=== PATIENT | female | born 1955 | race Caucasian/White ===

== ENCOUNTER 2020-02-14 18:33 | Emergency (ER) | payer SELFPAY ==
--- NOTE | 2020-02-14 18:54 | ER Document Report ---
ED Medical Screen (RME) - General Chief Complaint: Abdominal Pain Stated Complaint: ABDOMINAL PAIN Time Seen by Provider: 02/14/20 18:46 Primary Care Provider: NOHEMY GIORDANO JR, MD [ACTIVE STAFF] - Follow up as needed Mode of Arrival: Ambulatory Information source: Patient Notes: 64-year-old female with history of high blood pressure high cholesterol presents with a emergency department with complaints of right upper quadrant epigastric abdominal pain. Reports that she has been having this pain, spasming, for the past 2 months with some nausea and vomiting. A couple days ago she was in [place] and went to urgent care. She was evaluated with labs and also treated for an abscess under her right arm. They did not do a gallbladder ultrasound but told her they suspected it was her gallbladder. She reports this morning when she was in the shower she had a spasm on the right upper quad that radiated across her epigastric to the left upper quad. She also reported she had some jaw pain for approximately 1 minute. She denies chest pain shortness of breath. I have greeted and performed a rapid initial assessment of this patient. A comprehensive ED assessment and evaluation of the patient, analysis of test results and completion of the medical decision making process will be conducted by additional ED providers. - Related Data Allergies/Adverse Reactions: No Known Allergies Allergy (Unverified 08/21/11 09:48) Past Medical History - Past Medical History Cardiac Medical History: Reports: Hx Hypertension Past Surgical History: Reports: Hx Tubal Ligation - Immunizations Hx Diphtheria, Pertussis, Tetanus Vaccination: Yes Physical Exam - Vital signs Vitals: Temp 98.6 F 02/14/20 18:33 Course - Vital Signs Vital signs: Temp Pulse Resp BP Pulse Ox 98.6 F 69 15 150/78 H 98 02/14/20 18:42 02/14/20 18:42 02/14/20 18:42 02/14/20 18:42 02/14/20 18:42 - Laboratory Result Diagrams: 02/14/20 19:05 02/14/20 19:05 Laboratory results interpreted by me: 02/14/20 02/14/20 02/14/20 19:05 19:05 20:00 RDW 14.6 H Sodium 132.5 L Est GFR (MDRD) Non-Af 54 L Urine Blood SMALL H Doctor's Discharge - Discharge Referrals: NOHEMY GIORDANO JR, MD [ACTIVE STAFF] - Follow up as needed
[2020-02-14 19:22] LABS: ABSOLUTE EOSINOPHILS # (AUTO) 0.1 10^3/uL (0.0-0.6); ABSOLUTE MONOCYTES (AUTO) 0.6 10^3/uL (0.1-1.4); TOTAL CELLS COUNTED % (AUTO) 100 %
[2020-02-14 19:38] LABS: ALBUMIN 4.7 g/dL (3.5-5.0); ALKALINE PHOSPHATASE 120 U/L (38-126); ANION GAP 10 (5-19); ASPARTATE AMINO TRANSFERASE 26 U/L (14-36); BILIRUBIN,TOTAL 0.5 mg/dL (0.2-1.3); BLOOD UREA NITROGEN 19 mg/dL (7-20); CALCIUM 9.8 mg/dL (8.4-10.2); CARBON DIOXIDE 22 mmol/L (22-30); CHLORIDE 101 mmol/L (98-107); GLUCOSE 107 mg/dL (75-110); POTASSIUM 4.2 mmol/L (3.6-5.0); TOTAL PROTEIN 7.5 g/dL (6.3-8.2)
[2020-02-14 19:43] LABS: ABSOLUTE LYMPHOCYTES (AUTO) 3.4 10^3/uL (0.5-4.7); ABSOLUTE NEUT (AUTO) 4.2 10^3/uL (1.7-8.2); BASOPHILS % (AUTO) 0.4 % (0-2); HEMATOCRIT 38.3 % (36.0-47.0); HEMOGLOBIN 13.8 g/dL (12.0-15.5); LYMPHOCYTES % (AUTO) 41.4 % (13-45); MEAN CORPUSCULAR HEMOGLOBIN 30.5 pg (27.0-33.4); MEAN CORPUSCULAR VOLUME 85 fl (80-97); MONOCYTES % (AUTO) 6.8 % (3-13); PLATELET COUNT 343 10^3/uL (150-450); RED BLOOD COUNT 4.52 10^6/uL (3.72-5.28); RED CELL DISTRIBUTION WIDTH 14.6 % (11.5-14.0); SEGMENTED NEUTROPHILS % (AUTO) 50.4 % (42-78); WHITE BLOOD COUNT 8.3 10^3/uL (4.0-10.5)
--- NOTE | 2020-02-14 19:43 | RADIOLOGY REPORT (SQ) ---
EXAM DESCRIPTION: U/S ABDOMEN LIMITED W/O DOP IMAGES COMPLETED DATE/TIME: 02/14/2020 7:34 pm REASON FOR STUDY: RUQ, epigastric pain COMPARISON: None. TECHNIQUE: Dynamic and static grayscale images acquired of the abdomen and recorded on PACS. Additio nal selected color Doppler and spectral images recorded. LIMITATIONS: None. FINDINGS: PANCREAS: No masses. Visualized pancreatic duct normal caliber. LIVER: No masses. Echotexture normal. LIVER VASCULATURE: Normal directional flow of the main portal vein and hepatic veins. GALLBLADDER: No stones. Normal wall thickness. No pericholecystic fluid. ULTRASOUND-DETECTED BLANCO'S SIGN: Negative. INTRAHEPATIC DUCTS AND COMMON DUCT: CBD and intrahepatic ducts normal caliber. No filling defects. INFERIOR VENA CAVA: Normal flow. AORTA: No aneurysm. RIGHT KIDNEY: Normal size. Normal echogenicity. No solid or suspicious masses. No hydronephrosis. No calcifications. PERITONEAL AND RIGHT PLEURAL SPACE: No ascites or effusions. OTHER: No other significant findings. IMPRESSION: NORMAL RIGHT UPPER QUADRANT ULTRASOUND. TECHNICAL DOCUMENTATION: JOB ID: [id number] [employer]- All Rights Reserved Reading location - IP/workstation name: [email or web address]
[2020-02-14 20:16] LABS: APPEARANCE,URINE SLIGHTLY-CLOUDY; BILIRUBIN,URINE NEGATIVE (NEGATIVE); COLOR,URINE STRAW; GLUCOSE, URINE NEGATIVE (NEGATIVE); KETONES,URINE NEGATIVE (NEGATIVE); LEUKOCYTE ESTERASE,URINE NEGATIVE (NEGATIVE); NITRITE,URINE NEGATIVE (NEGATIVE); PROTEIN,URINE NEGATIVE (NEGATIVE); URINE SPECIFIC GRAVITY 1.006; UROBILINOGEN,URINE NEGATIVE mg/dL (<2.0)
[2020-02-14] MEDS ORDERED: DICYCLOMINE HCL 20 MG TABLET PO ONE (20:29)
[2020-02-14] MEDS ORDERED: SUCRALFATE 1 GM TABLET PO ONE (20:43)
[2020-02-14] MEDS ORDERED: FAMOTIDINE 20 MG TABLET PO ONE (20:43)
--- NOTE | 2020-02-14 20:45 | ER Document Report ---
ED GI/ - General Chief Complaint: Abdominal Pain Stated Complaint: ABDOMINAL PAIN Time Seen by Provider: 02/14/20 18:46 Primary Care Provider: [facility] [Provider Group] - Follow up in 3-5 days Mode of Arrival: Ambulatory Notes: Patient is a 64-year-old female who presents to the emergency department with a chief complaint of right upper quadrant abdominal pain. Patient states that she first had her pain about 2 months ago. She was seen in urgent care in [place] 2 days ago and she was told that it was most likely her gallbladder. She did not have it evaluated. Patient was also seen for an abscess under her right axilla area. She was started on Bactrim. Patient states that now she is having pain that radiates from her right upper quadrant to her left upper quad rant. She also states that she had some jaw pain around 1630. Denies any shortness of breath or difficulty breathing. Denies any fevers. - Related Data Allergies/Adverse Reactions: No Known Allergies Allergy (Unverified 08/21/11 09:48) Past Medical History - General Information source: Patient - Social History Smoking Status: Current Every Day Smoker Family History: Reviewed & Not Pertinent Patient has suicidal ideation: No Patient has homicidal ideation: No - Past Medical History Cardiac Medical History: Reports: Hx Hypertension Past Surgical History: Reports: Hx Tubal Ligation - Immunizations Hx Diphtheria, Pertussis, Tetanus Vaccination: Yes Review of Systems - Review of Systems Notes: REVIEW OF SYSTEMS: CONSTITUTIONAL : Denies recent illness. Denies recent unintentional weight loss. Denies fever, chills, or sweats. EENT: Denies eye, ear, throat, or mouth pain, discharge, or symptoms. Denies nasal or sinus congestion. CARDIOVASCULAR: See HPI. RESPIRATORY: Denies shortness of breath, cough, congestion, difficulty breathing, or wheezing. GASTROINTESTINAL: See HPI. GENITOURINARY: Denies difficulty urinating, burning, blood in urine, urgency or frequency. MUSCULOSKELETAL: Denies neck and back pain. Denies joint pain or swelling. SKIN: Denies rash, itchiness, or lesions HEMATOLOGIC : Denies easy bruising or bleeding. LYMPHATIC: Denies swollen, painful, enlarged glands. NEUROLOGICAL: Denies no numbness or tingling denies weakness. Denies headache. Denies altered mental status. Denies alteration in speech. PSYCHIATRIC: Denies stress, anxiety, alteration in sleep patterns, or depression. All other systems reviewed and negative. Physical Exam - Vital signs Vitals: Temp 98.6 F 02/14/20 18:33 - Notes Notes: PHYSICAL EXAMINATION: GENERAL: Appears well, healthy, well-nourished, no acute distress. HEAD: Normocephalic, atraumatic. EYES: PERRL, conjunctiva normal, all extraocular movements intact, sclera nonicteric ENT: Moist mucous membranes. NECK: Supple, no noticeable swelling, redness, rash. Normal range of motion. LUNGS: Equal breath sounds bilaterally and clear to auscultation. No wheezes rales or rhonchi. CARDIOVASCULAR: S1-S2, regular rate, regular rhythm. Radial pulses 2+, normal. ABDOMEN: Normoactive bowel sounds. Soft, nontender, no guarding, no rebound tenderness, and no masses palpated. Very benign abdominal exam. EXTREMITIES: Normal strength and range of motion, no pitting or edema. No cyanosis. NEUROLOGICAL: Moves all extremities upon command. Strength 5/5 in all extremities. PSYCH: Normal mood, normal affect. SKIN: Warm, dry. No rash, lesions, ulcerations noted. Normal skin turgor. Small abcess noted to right axilla. Course - Re-evaluation Re-evalutation: 02/14/20 22:21 Hematology is unremarkable. Chemistries show mild hyponatremia. Other chemistries are all unremarkable. LFTs are normal. Lipase is also normal. Right upper quadrant ultrasound is normal. No cholecystitis or cholelithiasis noted. Will repeat another troponin, as patient had left jaw pain. Medical exam is very benign. No tenderness, masses, or any rebound tenderness noted on physical exam. Very low suspicion for an obstruction. 02/15/20 00:27 Repeat troponin is unremarkable. KUB is normal and no dilated loops of bowel seen. I have very low suspicion for ACS, pulmonary emboli, or any life- threatening etiology at this time. Patient will follow-up with her primary care provider. Follow-up precautions were given. Verbal discharge instructions were given to the patient. They verbalized understanding. They are stable for discharge. - Vital Signs Vital signs: Temp Pulse Resp BP Pulse Ox 97.6 F 52 L 18 118/58 L 98 02/15/20 00:47 02/15/20 00:47 02/15/20 00:47 02/15/20 00:47 02/15/20 00:47 - Laboratory Result Diagrams: 02/14/20 19:05 02/14/20 19:05 Laboratory results interpreted by me: 02/14/20 02/14/20 02/14/20 19:05 19:05 20:00 RDW 14.6 H Sodium 132.5 L Est GFR (MDRD) Non-Af 54 L Urine Blood SMALL H Discharge - Discharge Clinical Impression: Abdominal pain Qualifiers: Abdominal location: right upper quadrant Qualified Code(s): R10.11 - Right upper quadrant pain Condition: Stable Disposition: HOME, SELF-CARE Additional Instructions: You were seen today in the emergency department for abdominal pain, jaw pain, and chest pain. Your labs and imaging are normal. Take Bentyl as needed for your pain. Please follow-up with your primary care provider in regards to this visit. You can take Bentyl as needed for pain/cramping. Prescriptions: Dicyclomine HCl [Bentyl 20 mg Tablet] 20 mg PO QID PRN #20 tablet PRN Reason: Referrals: [facility] [Provider Group] - Follow up in 3-5 days
--- NOTE | 2020-02-14 20:56 | RADIOLOGY REPORT (SQ) ---
CLINICAL INDICATION: abd pain. TECHNIQUE: 2 image(s) of the abdomen. Single image(s) of the chest. COMPARISON: Chest radiography May 05, 2011. CORRELATION: None. FINDINGS: A nonspecific gas pattern is identified. No evidence of high grade obstruction. No evidence of free air. Scoliosis. Osteoarthritis. Phleboliths within the pelvis. The cardiomediastinal silhouette is normal. The lungs are grossly clear. No evidence of effusion or pneumothorax. Mild chronic change, no adverse change. IMPRESSION: No acute intra-abdominal process is identified. No evidence of active intrathoracic disease. No adverse change
[2020-02-15] MEDS ORDERED: DICYCLOMINE HCL 20 MG TABLET PO ONE (00:30)
[2020-02-15 00:47] VITALS: BP 118/58
--- NOTE | 2020-02-15 10:24 | EKG REPORT ---
SEVERITY:- NORMAL ECG - SINUS RHYTHM : Confirmed by: Georges Merrill 15-Feb-2020 10:23:55
== END 2020-02-15 00:47 | disposition home or self-care (01) ==
LOC: ER 18:33
DX: R10.11 Right upper quadrant pain (principal); R68.84 Jaw pain; E87.1 Hypo-osmolality and hyponatremia; L02.411 Cutaneous abscess of right axilla; I10 Essential (primary) hypertension; F17.200 Nicotine dependence, unspecified, uncomplicated
CPT/HCPCS: 93005; 99284; 36415; 83690; 85025; 80053; 81001; 84484; 74022; 76705; 93010; J3490 ×2

== ENCOUNTER → 2020-04-12 | Outpatient (CLI) | payer OTHER ==
--- NOTE | 2020-04-12 15:01 | RADIOLOGY REPORT (SQ) ---
EXAM DESCRIPTION: CT ABDOMEN WITH IV ORAL CONT IMAGES COMPLETED DATE/TIME: 04/12/2020 1:20 pm REASON FOR STUDY: ABD PAIN (R10.9) R10.10 UPPER ABDOMINAL PAIN, UNSPECIFIED COMPARISON: Ultrasound of the abdomen from 02/14/2020. TECHNIQUE: CT scan of the abdomen performed with intravenous and with oral contrast using helical sc anning technique with dynamic intravenous contrast injection. Images reviewed with lung, soft tissue, and bone windows. Reconstructed coronal and sagittal MPR images reviewed. Delayed images for evaluat ion of the urinary system also acquired and evaluated. All images stored on PACS. All CT scanners at this facility use dose modulation, iterative reconstruc tion, and/or weight based dosing when appropriate to reduce radiation dose to as low as reasonably ac hievable (ALARA). [facility]: Dose Right [facility]: CareDose [facility]: Dose Right [facility]: Teradose 4D [facility]: streamOnce CONTRAST TYPE AND DOSE: 85 mL Omnipaque 350- low osmolar. RENAL FUNCTION: Creatinine 0.7 milligrams/deciliter. RADIATION DOSE: CT Rad equipment meets quality standard of care and radiation dose reduction techniq ues were employed. CTDIvol: 9.9 - 13.5 mGy. DLP: 961 mGy-cm. LIMITATIONS: None. FINDINGS: LOWER CHEST: No acute findings. LIVER: The relative hypoattenuation of the hepatic parenchyma compared to the splenic parenchyma on t he portal venous phase is suggestive of underlying hepatic steatosis. The portal veins are patent. There is no hepatic mass. SPLEEN: No splenomegaly or splenic mass. There is accessory splenule posterior to the pancreatic lyric l that measures 6 mm in diameter (image 23 of series 3). PANCREAS: No acute abnormality of the pancreas. GALLBLADDER: No abnormality that is apparent on CT. ADRENAL GLANDS: No mass or asymmetry. RIGHT KIDNEY AND URETER: No solid mass, hydronephrosis, nephrolithiasis, hydroureter or ureterolithia sis. LEFT KIDNEY AND URETER: No solid mass, hydronephrosis, nephrolithiasis, hydroureter or ureterolithias is. AORTA AND VESSELS: No aneurysm or dissection of the abdominal aorta. The abdominal vasculature is pa tent. RETROPERITONEUM: No retroperitoneal adenopathy, hemorrhage or mass. BOWEL AND PERITONEAL CAVITY: Periampullary duodenal diverticulum. There is no bowel obstruction, bow el wall thickening or pericolonic/ perienteric inflammation. There is no mesenteric adenopathy, free intraperitoneal fluid or mesenteric/ omental inflammation. APPENDIX: Normal. ABDOMINAL WALL: No abdominal wall mass or hernia. BONES: No acute findings. OTHER: No other finding. IMPRESSION: 1. No acute intra-abdominal abnormality. 2. Hepatic steatosis. TECHNICAL DOCUMENTATION: JOB ID: [id number] Quality ID # [id number]: Final reports with documentation of one or more dose reduction techniques (e.g., Au tomated exposure control, adjustment of the mA and/or kV according to patient size, use of iterative reconstruction technique) 2010 [employer]- All Rights Reserved Reading location - IP/workstation name: [email or web address]
== END ==
LOC: RAD 12:49
PROVIDERS: ATTEND Nurse Practitioner Community Health
DX: R10.9 Unspecified abdominal pain (principal); K76.0 Fatty (change of) liver, not elsewhere classified
CPT/HCPCS: 74160; 82565